=== PATIENT | female | born 1965 | race Caucasian/White ===

== ENCOUNTER → 2024-09-07 08:29 | Outpatient (REF) | payer BC, SELFPAY | LOC: WDC 08:29 | PROVIDERS: ATTENDING PHYSICIAN Obstetrics & Gynecology; FAMILY PHYSICIAN Family Medicine | DX: Z12.31 Encounter for screening mammogram for malignant neoplasm of breast (principal) | CPT/HCPCS: 77063; 77067 ==

== ENCOUNTER → 2024-11-23 10:48 | Outpatient (REF) | payer BC, SELFPAY | LOC: HWRAD 10:48 | PROVIDERS: ATTENDING PHYSICIAN Obstetrics & Gynecology; FAMILY PHYSICIAN Family Medicine | DX: Z78.0 Asymptomatic menopausal state (principal); E28.39 Other primary ovarian failure | CPT/HCPCS: 77080 ==